=== PATIENT | female | born 1970 | race Caucasian/White ===

== ENCOUNTER 2022-09-01 11:40 | Emergency (ER) | payer MEDICAID, SELFPAY ==
[2022-09-01 11:42] VITALS: BP 99/38; PULSE 94; RESP 18; TEMP 36.6; O2SAT 99; BMI 33.0
--- NOTE | 2022-09-01 12:39 | EX.ED.DYSGE1 ---
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 Patient had this placed because of a cervical mass measuring 6.7 cm with parametrial invasion on the left causing hydronephrosis. This was placed at [facility] on 07/15/[address] Bia Olguin. Patient also sees Dr. Kingsley for chemotherapy. Patient reports that the nephrostomy tube is not draining correctly. There is a part on the side that is cracked and leaking. She was seen by [facility] today and transferred to the ER out of concern that it was either displaced or needed to be replaced recommending an nephrostogram. Patient does not experiencing any more pain than usual. She has no fevers. She is eating and drinking normally. She is making normal stool PFSH PFSH Medical History Cervical cancer Presence of urostomy Home Medications oxycodone 5 mg tablet 5 mg PO Q8H 09/01/22 [History Last Taken Unknown] Allergy/AdvReac Type Severity Reaction Status Date / Time aspirin Allergy Swelling Verified 09/01/22 11:41 ibuprofen Allergy Swelling Verified 09/01/22 11:41 Penicillins Allergy Swelling Verified 09/01/22 11:41 Surgical History Hx of removal of ovary Social History Smoking Status: Current every day smoker tobacco type: cigarettes ROS ROS ED Constitutional Constitutional ED: Denies chills or fever(s) Eyes Eyes: Denies blurry vision or change in vision ENT ENT ED: Denies rhinorrhea or sore throat Cardiovascular Cardiovascular: Denies chest pain or palpitations Respiratory/Chest Respiratory/Chest: Denies cough or dyspnea Gastrointestinal Gastrointestinal: Denies abdominal pain or constipation Genitourinary Genitourinary ED: Denies dysuria or hematuria Musculoskeletal Musculoskeletal: Denies arthralgias or back pain Integumentary Denies abscess Neurologic Neurologic: Denies headache(s) or paresthesias Psychiatric Psychiatric: Denies anxiety or depression EXAM Physical Exam Const Vital Signs: 09/01/22 11:42 Temperature 97.8 F Temperature Source Temporal Pulse Rate 94 Respiratory Rate 18 Blood Pressure 99/38 L Blood Pressure Mean 58 Pulse Ox 99 Oxygen Delivery Method Room Air Positive well nourished General Appearance ED: NAD HEENT Reports moist mucous membranes Negative for trauma or tenderness Eyes PERRL and EOMs intact bilaterally General Eye ED: Negative for pale conjunctiva or scleral icterus Chest Wall inspection of chest normal Resp normal respiratory effort Effort and Inspection: retractions Cardio regular rate and regular rhythm GI GI Narrative: Nephrostomy tube in the left flank without surrounding induration or erythema. Minimally tender to palpation. Back/Spine no CVA tenderness Neuro oriented x3 and CN's II-XII intact bilaterally Sensorium / Orientation: alert Psych mental status grossly normal MDM MDM MDM Narrative Medical decision making narrative: Patient has nephrostomy tube malfunction and appears to be a faulty part (Cap) on the outside of the nephrostomy tube. Patient states she is having trouble draining it because of leaking. The port was replaced and it is functional. She is now to able to drain her nephrostomy tube. I did speak with interventional radiology and they did not have any comfort in doing a nephrostogram her because she is on chemotherapy and this was placed by another surgeon in another facility. Since it is functional I do not believe she needs anything emergent. I recommended that she call her relay telegrapher who is caring for her and/or follow-up with the surgeon who placed it. Impression: 1. Nephrostomy tube Lab Data Attestation: I reviewed the patient's lab results. Discharge Plan Triage Chief Complaint: Complaint ED Provider: Jarod Andrea Dx/Rx/DC Orders Prescriptions: No Action oxycodone 5 mg tablet 5 mg PO Q8H Label Comments: Take 1 tablet by mouth every 8 hours as needed for pain for up to 7 days. Primary Care Provider: Care Physician,No Primary Referrals: Care Physician,No Primary [Primary Care Provider] - Activity Restrictions/Additional Instructions: You were seen today for nephrostomy tube part replacement. We were able to find the correct part and urostomy is not flushing appropriately. I did speak with interventional radiology and they did prefer that you go to the facility that placed the nephrostomy tube and they would not be able to provide any intervention today. If there are any more concerns with her nephrostomy tube I recommend calling the surgeon who placed it. Disposition Disposition: Home, Self Care
[2022-09-01 13:41] VITALS: BP 122/75; PULSE 75; RESP 16; O2SAT 98
[2022-09-01 13:50] VITALS: BP 101/39; PULSE 69; RESP 18; TEMP 36.7; O2SAT 96
== END 2022-09-01 13:52 | disposition home or self-care (01) ==
PROVIDERS: Emergency Provider Student in an Organized Health Care Education/Training Program; Visit Provider Student in an Organized Health Care Education/Training Program
DX: N99.522 Malfunction of incontinent external stoma of urinary tract (principal); N13.30 Unspecified hydronephrosis; F17.210 Nicotine dependence, cigarettes, uncomplicated; Z92.21 Personal history of antineoplastic chemotherapy; Z85.42 Personal history of malignant neoplasm of other parts of uterus
CPT/HCPCS: 99282; A4216

== ENCOUNTER 2023-03-18 23:55 | Emergency (ER) | payer MEDICAID, SELFPAY ==
[2023-03-18 23:57] VITALS: BP 128/57; PULSE 84; RESP 15; TEMP 36.9; O2SAT 100; BMI 32.3
--- NOTE | 2023-03-19 00:47 | EDS_ITS ---
HPI HPI - Female History of Present Illness Chief Complaint: Vag Bleeding Informant: patient Pain Pain: Positive for Pelvic Pain Onset: Hours (1) Bleeding Issue: Positive for Vaginal bleeding Onset: Hours (1) Context: Sudden Onset Current Severity: Spotting Maximum Severity: Heavy Vaginal Discharge Onset: Month(s) (4) Narrative Narrative: Patient presents with an hour of suprapubic cramping that is relatively mild and vaginal bleeding that was relatively heavy but is now tapered off, started spontaneously. She has a cervical cancer, she was diagnosed and treated, she had radiation she did not have to have surgery, but for the past 4 months she has been diagnosed with a uterovaginal fistula, at 1 point she had to have something lanced on the inside, in her vagina, she was on antibiotics temporarily, but for the last couple months she has been undergoing hyperbaric oxygen treatments, she has 20 more treatments left, the goal of which is to heal this fistula. She is following with Dr. Ma, gynecology oncology at [facility]. 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 She states that is no different tonight. [facility] Medical History Cervical cancer Presence of urostomy Home Medications oxycodone 5 mg tablet 5 mg PO Q8H 09/01/22 [History Last Taken Unknown] Allergy/AdvReac Type Severity Reaction Status Date / Time aspirin Allergy Swelling Verified 03/19/23 00:02 ibuprofen Allergy Swelling Verified 03/19/23 00:02 Penicillins Allergy Swelling Verified 03/19/23 00:02 ciprofloxacin [From Cipro] AdvReac PT UNSURE Verified 03/19/23 00:02 OF REACTION Surgical History Hx of removal of ovary Social History Smoking Status: Current every day smoker tobacco type: cigarettes ROS ROS ED Constitutional Constitutional ED: Denies chills or fever(s) Eyes Eyes: Denies change in vision or diplopia ENT ENT ED: Denies rhinorrhea or sore throat Cardiovascular Cardiovascular: Denies chest pain or palpitations Respiratory/Chest Respiratory/Chest: Denies cough or dyspnea Gastrointestinal Gastrointestinal: Reports abdominal pain; Denies diarrhea, nausea or vomiting Genitourinary Genitourinary ED: Reports as per HPI; Denies dysuria or hematuria Musculoskeletal Musculoskeletal: Denies back pain or neck pain Integumentary Denies abscess or rash Neurologic Neurologic: Denies headache(s), paresthesias or weakness Psychiatric Psychiatric: Denies anxiety or suicidal thoughts EXAM Physical Exam Const Vital Signs: 03/18/23 23:57 Temperature 98.4 F Temperature Source Oral Pulse Rate 84 Respiratory Rate 15 Blood Pressure 128/57 H Blood Pressure Mean 80 Pulse Ox 100 Oxygen Delivery Method Room Air Positive well nourished and well developed General Appearance ED: well developed and NAD HEENT Reports moist mucous membranes normocephalic and atraumatic Eyes PERRL and EOMs intact bilaterally Neck full ROM and supple Resp normal respiratory effort and clear to auscultation bilaterally Cardio regular rate, regular rhythm and no murmurs GI non-distended GI Narrative: Very mild suprapubic tenderness no guarding or rebound Auscultation: normoactive bowel sounds Palpation: soft Narrative: External exam is normal. Slight amount of blood present. On speculum exam, there is small amount of blood in the vaginal vault and small number of linear blood clots beyond the narrowing distal/upper vaginal canal that I cannot get to due to pain with speculum exam there, and further up more to the patient right there is what appears to be the fistula that the patient refers to, there is no active bleeding or discharge emanating from the fistula at this time. There is no pooling of blood in the vaginal canal, only a scant amount. Back/Spine no CVA tenderness General Back: other FROM Extremity normal to inspection General Extremety ED: Negative for edema, pulses abnormal or tenderness General Extremity: Negative for edema or pulses abnormal Neuro oriented x3, CN's II-XII intact bilaterally and no sensory deficits noted Sensorium / Orientation: awake and alert Motor Exam: strength 5/5 throughout Psych mental status grossly normal Skin no rashes or lesions noted and no wounds MDM MDM MDM Narrative Medical decision making narrative: Labs are unremarkable she does not have a significant leukocytosis. While waiting for these to come back I did give the patient some IV pain medication. I discussed with her gynecologic oncologist Dr. Sevilla. She knows the patient well, since it is not actively bleeding, she is comfortable with her following up as an outpatient and I will have the nurse call her to check on her condition tomorrow. She agrees that no further emergent imaging would be necessary, and the fact that there is no active bleeding from the fistula, not likely that a blood vessel has eroded into this or vice versa. We discussed reasons to return patient is comfortable with this plan has him pain medication at home. Lab Data Attestation: I reviewed the patient's lab results. Labs: Laboratory Results - last 24 hr 03/19/23 00:15 WBC 10.6 RBC 4.27 Hgb 12.4 Hct 38.2 MCV 89.5 MCH 29.0 MCHC 32.5 RDW Std Deviation 52.3 H RDW Coeff of Raulito 16.0 H Plt Count 394 MPV 8.9 Immature Gran % (Auto) 0.500 Neut % (Auto) 78.3 H Lymph % (Auto) 9.7 L Simpson % (Auto) 7.6 Eos % (Auto) 3.5 Baso % (Auto) 0.4 Absolute Neuts (auto) 8.3 H Absolute Lymphs (auto) 1.03 Nucleated RBC % 0 Sodium 140 Potassium 3.7 Chloride 107 Carbon Dioxide 29.0 Anion Gap 4 L BUN 19 H Creatinine 1.08 H Estim Creat Clear Calc 48.74 Est GFR (MDRD) Af Amer 69 Est GFR (MDRD) Non-Af 57 L BUN/Creatinine Ratio 17.6 Glucose 99 Calcium 9.4 Management Discussion w/another healthcare provider: [employer] Discharge Plan Triage Chief Complaint: Vag Bleeding ED Provider: Taye Cote Dx/Rx/DC Orders Clinical Impression: Fistula of vagina, Abnormal vaginal bleeding Instructions: ED Dysfunctional Uterine Bleeding Prescriptions: No Action oxycodone 5 mg tablet 5 mg PO Q8H Patient Comments: Take 1 tablet by mouth every 8 hours as needed for pain for up to 7 days. Primary Care Provider: MATT DIAZ Referrals: MATT DIAZ [Other] (RN will call you tomorrow to check on your condition and discuss follow up) Disposition Disposition: Home, Self Care
[2023-03-19 00:55] LABS: Absolute Lymphocyte Count 1.03 X10^3/uL (0.83-4.51); Absolute Neutrophil Count 8.3 X10^3/uL (2.0-7.7); Basophil# 0.04 X10^3/uL; Basophil% 0.4 % (0-1); Eosinophil# 0.37 X10^3/uL; Eosinophils% 3.5 % (0-5); Hematocrit 38.2 % (37-47); Hemoglobin 12.4 g/dL (12.0-15.0); Lymphocyte # 1.03 X10^3/ul (0.83-4.51); Lymphocyte % 9.7 % (19-41); Mean Corp Hgb Conc 32.5 g/dL (32-36); Mean Corpuscular Volume 89.5 fL (81-99); Mean Platelet Vol. 8.9 fl (6.2-12.0); Monocyte% 7.6 % (0-10); NRBC Flagged by Analyzer 0 % (0-5); Neutrophil # 8.29 X10^3/uL (2.7-7.7); Neutrophil % 78.3 % (47-70); Platelet Count 394 K/mm3 (150-450); RBC Distribution Width SD 52.3 fl (35.1-43.9); Red Blood Count 4.27 M/mm3 (4.2-5.4); White Blood Count 10.6 K/mm3 (4.4-11.0)
[2023-03-19] MEDS: Ondansetron 4 MG/2 ML Vial IV (00:57)
[2023-03-19] MEDS: Morphine 4 MG/ML Syringe IV (00:58)
[2023-03-19 01:08] LABS: Anion Gap 4 (5-15); BUN 19 mg/dL (7-18); BUN/Creat Ratio 17.6 RATIO (10-20); Calcium,Total 9.4 mg/dL (8.5-10.1); Chloride 107 mmol/L (98-107); Creatinine, Serum 1.08 mg/dL (0.55-1.02); EST Glomerular Filtration Rate 57 mL/min (>60); Est Glom Filt Rate - Afr Amer 69 mL/min (>60); Estimated Creatinine Clearance 48.74 ml/min; Glucose 99 mg/dL (74-106); Potassium 3.7 mmol/L (3.5-5.1); Sodium Level 140 mmol/L (136-145)
== END 2023-03-19 01:58 | disposition home or self-care (01) ==
PROVIDERS: Emergency Provider Emergency Medicine; Visit Provider Emergency Medicine
DX: N82.8 Other female genital tract fistulae (principal); N93.9 Abnormal uterine and vaginal bleeding, unspecified; K64.9 Unspecified hemorrhoids; R10.2 Pelvic and perineal pain; F17.210 Nicotine dependence, cigarettes, uncomplicated; Z85.41 Personal history of malignant neoplasm of cervix uteri; Z92.3 Personal history of irradiation; G89.29 Other chronic pain
CPT/HCPCS: 80048; 85025; 96374; 96375; 99283; A4216; J2405

== ENCOUNTER 2023-05-02 21:36 | Emergency (ER) | payer MEDICAID, SELFPAY ==
[2023-05-02 21:39] VITALS: BP 125/68; PULSE 75; RESP 16; TEMP 36.6; BMI 34.9
[2023-05-02 21:41] VITALS: BP 125/68; PULSE 75; RESP 16; TEMP 36.6
[2023-05-02 22:50] LABS: Absolute Lymphocyte Count 0.65 X10^3/uL (0.83-4.51); Basophil# 0.05 X10^3/uL; Basophil% 0.5 % (0-1); Eosinophil# 0.09 X10^3/uL; Eosinophils% 0.9 % (0-5); Hematocrit 43.7 % (37-47); Hemoglobin 14.2 g/dL (12.0-15.0); Lymphocyte # 0.65 X10^3/ul (0.83-4.51); Lymphocyte % 6.3 % (19-41); Mean Corp Hgb Conc 32.5 g/dL (32-36); Mean Corpuscular Hgb 29.3 pg (27.0-32.0); Mean Corpuscular Volume 90.1 fL (81-99); Mean Platelet Vol. 8.9 fl (6.2-12.0); Monocyte# 0.54 X10^3/uL; Monocyte% 5.2 % (0-10); NRBC Flagged by Analyzer 0 % (0-5); Neutrophil # 9.01 X10^3/uL (2.7-7.7); Neutrophil % 86.5 % (47-70); Platelet Count 349 K/mm3 (150-450); RBC Distribution Width CV 15.2 % (11.6-14.6); RBC Distribution Width SD 50.7 fl (35.1-43.9); Red Blood Count 4.85 M/mm3 (4.2-5.4); White Blood Count 10.4 K/mm3 (4.4-11.0)
[2023-05-02] MEDS: Morphine 4 MG/ML Syringe IV (22:50)
[2023-05-02] MEDS: 0.9% Normal Saline (1000mL) 1,000 ML 999 ML IV (22:50)
[2023-05-02] MEDS: Ondansetron 4 MG/2 ML Vial IV (22:50)
--- NOTE | 2023-05-02 23:04 | CT_ITS ---
EXAM: CT ABDOMEN AND PELVIS WITHOUT INTRAVENOUS CONTRAST CLINICAL INDICATION: right flank pain TECHNIQUE: Helically acquired images were obtained of the abdomen and pelvis without intravenous contrast. This CT exam was performed using one or more of the following dose reduction techniques: automated exposure control, adjustment of the mA and/or kV according to patient size, and/or use of iterative reconstruction technique. RADIATION DOSE: CTDIvol = 15.98 mGy, DLP = 826.30 mGy-cm COMPARISON: No relevant prior studies available. FINDINGS: LOWER THORAX: Unremarkable. Lung bases are clear. No cardiomegaly. No significant pericardial effusion. ABDOMEN: LIVER: Unremarkable. Homogeneous. GALLBLADDER AND BILE DUCTS: Multiple stones in the gallbladder. No gallbladder distention or wall edema. No intra- or extrahepatic biliary ductal dilation. PANCREAS: Unremarkable. No focal cystic mass. SPLEEN: Unremarkable. Normal size without focal cystic or solid mass. ADRENALS: Unremarkable. No nodules. KIDNEYS AND URETERS: Mild left hydroureter and hydronephrosis. The distal left ureter extends directly adjacent to the distal end of the vagina, which has a prominent amount of fluid. Normal renal size and position. STOMACH AND BOWEL: Unremarkable. No stomach or bowel distention. No focal inflammatory change. PELVIS: APPENDIX: The appendix is normal. BLADDER: Unremarkable. REPRODUCTIVE: Unremarkable as visualized. No mass. ABDOMEN and PELVIS: INTRAPERITONEAL SPACE: Unremarkable. No ascites or other fluid collection. No free air. BONES/JOINTS: Degenerative changes of the spine. No suspicious lytic or blastic abnormality. SOFT TISSUES: Unremarkable. No discrete abdominal or pelvic wall hernia. VASCULATURE: Unremarkable. Abdominal aorta is non-dilated. LYMPH NODES: Unremarkable. No enlarged lymph nodes. CT/Abdomen/Pelvis without Cont IMPRESSION: 1. Mild left hydroureter and hydronephrosis. The distal left ureter extends directly adjacent to the distal end of the vagina, which has a prominent amount of fluid. This could indicate a ureterovaginal fistula or a distal ureteral stricture in a patient with a history of previous pelvic radiation therapy. 2. Multiple stones in the gallbladder. Electronically Signed: Trev Monte MD at 23:26 EDT ,
[2023-05-02 23:11] LABS: Anion Gap 5 (5-15); BUN 19 mg/dL (7-18); BUN/Creat Ratio 17.8 RATIO (10-20); Calcium,Total 9.7 mg/dL (8.5-10.1); Chloride 104 mmol/L (98-107); Creatinine, Serum 1.07 mg/dL (0.55-1.02); EST Glomerular Filtration Rate 57 mL/min (>60); Est Glom Filt Rate - Afr Amer 69 mL/min (>60); Glucose 115 mg/dL (74-106); Potassium 4.3 mmol/L (3.5-5.1); Sodium Level 137 mmol/L (136-145)
[2023-05-02 23:25] LABS: Mucous, Urine 0 SEEN /hpf (<or=2+); Squamous Epithelial Cells - UA 0 SEEN /hpf (5-10); White Blood Cells 0 SEEN /hpf (0-5)
[2023-05-02 23:52] LABS: Color, Urine Yellow (Yellow); Glucose, Dipstick Normal (Normal); Ketone-Dipstick Negative (Negative); Leukocyte Esterase-Dipstick 25 /ul (Negative); Nitrite-Dipstick Negative (Negative); Occult Blood-Urine 10 /ul (Negative); Protein-Dipstick 15 mg/dl (Negative); Urine Bilirubin Dipstick Negative (Negative); Urine Clarity Clear (Clear); Urine Urobilinogen Normal (Normal)
[2023-05-03 00:17] LABS: Bacteria RARE /hpf (None Seen); Red Blood Cells-Urine 0-5 SEEN /hpf (0-5)
--- NOTE | 2023-05-03 00:59 | EDS_ITS ---
HPI History of Present Illness Chief Complaint: Abd Pain Informant: patient Narrative Narrative: Patient is a 52-year-old female with known renal cancer with metastasized to the pelvis. She states that she had a MRI of her abdomen roughly 2 weeks ago which showed gallstones but that this was an incidental finding as the MRI was truly for her renal cancer with pelvic metastases. She states that today she noticed a sharp pain in the right lower quadrant that came along the lateral aspect of the abdomen and wrapped around to her back. She states that the pain does not improve or lessen with any type of motion or position change. She states that there is been no dysuria and she denies any fevers or chills because of her significant past medical history recent discovery of gallstones and now this increased pain she was concerned and therefore comes in for evaluation [facility] Medical History Cervical cancer Presence of urostomy Home Medications oxycodone 5 mg tablet 5 mg PO Q8H 09/01/22 [History Last Taken Unknown] ondansetron 4 mg disintegrating tablet 4 mg PO TID PRN nausea and vomiting #21 tabs 05/03/23 [Rx Last Taken Unknown] oxycodone-acetaminophen 5 mg-325 mg tablet (Percocet) 1 tab PO Q6H PRN pain 3 days #12 tabs 05/03/23 [Rx Last Taken Unknown] Allergy/AdvReac Type Severity Reaction Status Date / Time aspirin Allergy Swelling Verified 05/02/23 21:38 ibuprofen Allergy Swelling Verified 05/02/23 21:38 Penicillins Allergy Swelling Verified 05/02/23 21:38 ciprofloxacin [From Cipro] AdvReac PT UNSURE Verified 05/02/23 21:38 OF REACTION Surgical History Hx of removal of ovary Social History Smoking Status: Current every day smoker tobacco type: cigarettes ROS ROS ED Constitutional Constitutional ED: Denies chills or fever(s) ENT ENT ED: Denies sore throat Cardiovascular Cardiovascular: Denies chest pain Respiratory/Chest Respiratory/Chest: Denies cough or dyspnea Gastrointestinal Gastrointestinal: Reports abdominal pain and nausea; Denies diarrhea or vomiting Genitourinary Genitourinary ED: Denies dysuria or urinary frequency Musculoskeletal Musculoskeletal: Reports back pain; Denies myalgias Integumentary Denies rash Neurologic Neurologic: Denies headache(s) Hematologic/Lymphatic Hematologic/Lymphatic: Denies easy bleeding or easy bruising EXAM Physical Exam Const Vital Signs: 05/03/23 01:20 Pulse Rate 85 Pulse Ox 96 Positive well nourished and well developed General Appearance ED: well developed HEENT Reports moist mucous membranes Eyes PERRL and EOMs intact bilaterally General Eye ED: Negative for scleral icterus Neck supple Resp normal respiratory effort and clear to auscultation bilaterally Cardio regular rate and regular rhythm Rate: other Other Details: Radial and carotid pulses are equal and symmetric GI non-distended GI Narrative: Abdomen is soft and nondistended with hypoactive bowel sounds. There is pain on palpation in the right lower mid and upper abdomen. No voluntary guarding or rigidity. No pulsatile mass or fluid wave. Negative Hawkins sign Auscultation: hypoactive bowel sounds Palpation: soft Back/Spine Back/Spine Narrative: Positive right CVA pain noted Extremity normal to inspection Neuro oriented x3 and CN's II-XII intact bilaterally Sensorium / Orientation: alert Psych mental status grossly normal Skin no rashes or lesions noted MDM MDM MDM Narrative Medical decision making narrative: Patient presented to the ER with stable vitals but reported onset of sharp right-sided abdominal pain wrapping around to her back that did not improve or worsen with position change. Differential diagnosis is for kidney stone/ureterolithiasis versus the area colic versus pancreatitis versus metastatic lesions versus potential obstruction versus pyelonephritis. As the patient's exam is more consistent with kidney stones and it is biliary colic I did elect to perform basic laboratory studies with a noncontrast CT scan looking for potential stone. Labs showed stable kidney function no electrolyte derangement and stable H&H. Urine sample displayed blood which can be consistent with kidney stone but no secondary changes to suggest infection going against pyelonephritis. The patient CT scan revealed multiple gallstones without signs of acute cholecystitis and it showed the mass within her left kidney causing compression of the left ureter but patient states this is chronic in nature. There is no obvious kidney stone noted. At this time vitals are stable laboratory values do not show signs of acute infection or acute kidney injury her exam and CT scan do not suggest acute cholecystitis. Therefore with improvement of pain and negative work-up she will be given symptomatic care and discharged home. History & Record Review Discussion w/independent historian: Patient and Family Lab Data Attestation: I reviewed the patient's lab results. Labs: Laboratory Results - last 24 hr 05/02/23 05/02/23 12:15 23:15 WBC 10.4 RBC 4.85 Hgb 14.2 Hct 43.7 MCV 90.1 MCH 29.3 MCHC 32.5 RDW Std Deviation 50.7 H RDW Coeff of [place] 15.2 H Plt Count 349 MPV 8.9 Immature Gran % (Auto) 0.600 Neut % (Auto) 86.5 H Lymph % (Auto) 6.3 L [place] % (Auto) 5.2 Eos % (Auto) 0.9 Baso % (Auto) 0.5 Absolute Neuts (auto) 9.0 H Absolute Lymphs (auto) 0.65 L Nucleated RBC % 0 Sodium 137 Potassium 4.3 Chloride 104 Carbon Dioxide 28.0 Anion Gap 5 BUN 19 H Creatinine 1.07 H Estim Creat Clear Calc 49.20 Est GFR (MDRD) Af Amer 69 Est GFR (MDRD) Non-Af 57 L BUN/Creatinine Ratio 17.8 Glucose 115 H Calcium 9.7 Urine Color Yellow Urine Clarity Clear Urine pH 6.0 Ur Specific [place] 1.020 Urine Protein 15 H Urine Glucose (UA) Normal Urine Ketones Negative Urine Occult Blood 10 H Urine Nitrite Negative Urine Bilirubin Negative Urine Urobilinogen Normal Ur Leukocyte Esterase 25 H Urine RBC 0-5 SEEN Urine WBC 0 SEEN Ur Squamous Epith Cells 0 SEEN Urine Bacteria RARE Urine Mucus 0 SEEN Radiography Diagnostic Testing: Clinical Impression(s) from Imaging Studies Abdomen/Pelvis CT 05/02/23 23:04 IMPRESSION: 1. Mild left hydroureter and hydronephrosis. The distal left ureter extends directly adjacent to the distal end of the vagina, which has a prominent amount of fluid. This could indicate a ureterovaginal fistula or a distal ureteral stricture in a patient with a history of previous pelvic radiation therapy. 2. Multiple stones in the gallbladder. Electronically Signed: Trev Monte MD at 23:26 EDT , Discharge Plan Triage Chief Complaint: Abd Pain ED Provider: Jasbir Munguia Dx/Rx/DC Orders Clinical Impression: Right flank pain, Cholelithiasis, Metastatic cancer Instructions: Gallstones Dc, ED Kidney Stone w/ Colic Prescriptions: New oxycodone-acetaminophen [Percocet] 5-325 mg tablet 1 tab PO Q6H PRN (Reason: pain) 3 Days Qty: 12 0RF ondansetron 4 mg tablet,disintegrating 4 mg PO TID PRN (Reason: nausea and vomiting) Qty: 21 0RF No Action oxycodone 5 mg tablet 5 mg PO Q8H Patient Comments: Take 1 tablet by mouth every 8 hours as needed for pain for up to 7 days. Primary Care Provider: Care Physician,No Primary Referrals: Care Physician,No Primary [Primary Care Provider] - Activity Restrictions/Additional Instructions: Take your medication as directed to help control your symptoms but if you develop a fever over 100.4 intractable pain or intractable nausea/vomiting please return to the ER for repeat evaluation Disposition Disposition: Home, Self Care Discharge Date/Time: 05/03/23 01:21
[2023-05-03 01:20] VITALS: PULSE 85; O2SAT 96
== END 2023-05-03 01:21 | disposition home or self-care (01) ==
PROVIDERS: Emergency Provider Emergency Medicine; Visit Provider Emergency Medicine
DX: R10.31 Right lower quadrant pain (principal); C79.89 Secondary malignant neoplasm of other specified sites; C64.9 Malignant neoplasm of unspecified kidney, except renal pelvis; K80.20 Calculus of gallbladder without cholecystitis without obstruction; F17.210 Nicotine dependence, cigarettes, uncomplicated
CPT/HCPCS: 74176; 80048; 81001; 85025; 96361; 96374; 96375; 99283; A4216; J2405

== ENCOUNTER 2023-08-27 10:00 | Outpatient (RCR) | payer MEDICAID, SELFPAY ==
--- NOTE | 2023-04-27 15:56 | HP.PTEVAL ---
Patient's Visit Information Visit Information Visit Information: MAXIMILIANO WYMAN is a 52 year old F referred to Physical Therapy by MATT WHITE with a diagnosis of weakness. Date of Evaluation: 04/27/23 Physical Therapist: HANNAH Pickering Visit Plan Frequency: 3x /Week Duration: 3 Months Plan: Test Tinetti, CATSIB and stairs next visit (pt was too tired after eval) 3X/ week for 3 months for LE strength, gait training, functional strength, balance, general mobility with HEP Subjective Subjective: Cervical CA in May and she did all of her treatments in [facility] and she was good. The last week of Sep until November 22 she was doing good and back to normal. She went on vacation and was coming back and life hit her. She has a fistula and she started with a pain like she was having a baby 24-7 in her butt and no once could figure out what it was. She could not move or she was in pain. The fistula is shrinking. She still has pain but not a whole lot. Her legs get really tired really fast. She is not strong in her arms. Her kidney is having trouble. She really wants to walk. She does not want a walker. She wants to move now that she does not hurt so much. She is walking pushing with a wheelchair. She wants to move but afraid that she will do too much and then start to hurt. She is in tears and she is an emotional mess. She is off the pain meds and takes Tylenol as needed. She started shaking about 2-3 weeks ago (she had some before but not like this). According to her kids the shaking is getting worse. She sees the Dr on . She walked from [employer] to the [employer]. She has leg feeling of rubbery and sometimes they are like lead. She feels safer with tennis shoes. Stairs: one step at a time with one hand rail and holds onto the side of the house and they are hard. She snuck out today and drove here. Driving was not an issue. She has no shakiness with sitting. She does have some back pain. No N&T. No pain in the legs. Her feet do not fall asleep. She is not sleeping at night. Her sleep schedules are off. Pt is very angry. Pt does struggle sometimes getting out of a deep chair and she needs to use her arms to get up. Pt is having some vision issues...things are blurry when she is looking up close...she does wear cheaters but vision has gotten worse over the last 2 weeks. She feels it is related to the Gabapetin. Pain Pelvic pain: Pain Intensity (Out of 10): 3 Objective Objective: Gait: walks pushing a wheelchair with scissoring of gait with one foot in front of the other. Pt is able to walk without scissoring with concentration but with distraction, such as walking and talking, she goes right back to scissoring. While pt is walking she gets shaking and ataxia. She does not like to move her head with gait and has a hard time looking down at her feet with gait. Pt uses a wheelchair to walk. She does not use it in the house but does furniture walk Standing heel and toe raises X [address] with heavy UE support Patella DTR's 2+/3 LE MMT: R hip flex 12.7 and L 10.4 R knee ext 15.3 and L 8.8 R knee flex 5.7 and L 7 Supine hooKlying flexion R 5.3 and L 5.5 Bridges: 1/4 normal ROM Sit to stand: able to get up but needs UE to push self up. LTR: increase stretch to B sides SLR: Has a hard time lifting her leg.... feels that her brain can not communicate with her leg in what to do Sitting LAQ with EC: feels that she is in full LAQ when she does not have full ROM with EC Heel to orta test...able to get to her orta with the opposite heel but is slow and not good proprioception to get there. Balance/Special Test Scores Lower Extremity Functional Score: 17 Goals Goal 1:: I HEP Goal Time Frame: 8-12 Weeks Goal 2:: Increase LE strength (at time of the eval: LE MMT: R hip flex 12.7 and L 10.4 R knee ext 15.3 and L 8.8 R knee flex 5.7 and L 7 Supine hooKlying flexion R 5.3 and L 5.5) Goal Time Frame: 8-12 Weeks Goal 3:: Be able to walk back to the treatment area with least restrictive device without scissoring, less ataxia, more overall control and more endurance Goal Time Frame: 8-12 Weeks Rehabilitation Potential Rehabilitation Potential: Good Anticipated Interventions Text: Thank you for the opportunity to evaluate your patient. For Medicare and Medicare HMO plans, please review the plan of care and approve it. It will need to be FAXED BACK to us at [phone] for Medicare purposes. For Medicare only, by signing this I certify the plan of care. Please let me know if there are questions or concerns regarding this plan of care. Physician Signature: Date:
--- NOTE | 2023-06-01 09:35 | HP.PTDCSUM ---
Discharge Summary D/C summary: It has been my pleasure to treat MAXIMILIANO Rios GARO referred by MATT WHITE, with the diagnosis of weakness for a total of 11 visit(s). Discharge Date: Please see the following information for a summary of their discharge status. Subjective Subjective: Pt reports that she does well in the beginning of PT and then she tuckers out. She wants a neurology appt Pain Pelvic pain: Pain Intensity (Out of 10): 0 Belly pain: Pain Intensity (Out of 10): 0 Overall Improvement % Improvement: 30 Objective Objective/Function: Pt legs started shaking pretty quickly into treatment Goals Goal 1:: I HEP Goal 2:: Increase LE strength (at time of the eval: LE MMT: R hip flex 12.7 and L 10.4 R knee ext 15.3 and L 8.8 R knee flex 5.7 and L 7 Supine hooKlying flexion R 5.3 and L 5.5) Goal 3:: Be able to walk back to the treatment area with least restrictive device without scissoring, less ataxia, more overall control and more endurance Plan Plan: Resume Blaze pods... pt was too shaky today D/C Information d/c sentence: If there are questions or concerns regarding this patient's physical therapy, please feel free to call me at [phone]. Thank you for the referral of this patient. Sincerely, Julianna Madison, MPT Balance/Gait/Functional tests Balance/Special Test Scores Lower Extremity Functional Score: 17 TUG Test Time Seconds: 7.3 Tug Test: <10 sec.=free mobile 30 Second Chair Rise Test Seconds: 14 Improvement % Improvement: 30
--- NOTE | 2023-06-01 14:47 | HP.PTREVAL ---
Re-Evaluation Intro: MATT WHITE, It has been my pleasure to treat MAXIMILIANO WYMAN over the last 11 visits for weakness. Please see the progress note below for an update on the physical therapy plan of care! Subjective Subjective: Pt reports that she does well in the beginning of PT and then she tuckers out. She wants a neurology appt Objective Objective/Function: Pt legs started shaking pretty quickly into treatment Plan Plan Plan: Resume Blaze pods... pt was too shaky today Balance/Gait/Functional tests Balance/Special Test Scores Lower Extremity Functional Score: 17 TUG Test Time Seconds: 7.3 Tug Test: <10 sec.=free mobile 30 Second Chair Rise Test Seconds: 14 Goals Goals Goal 1:: I HEP Goal Time Frame: 8-12 Weeks Goal 2:: Increase LE strength (at time of the eval: LE MMT: R hip flex 12.7 and L 10.4 R knee ext 15.3 and L 8.8 R knee flex 5.7 and L 7 Supine hooKlying flexion R 5.3 and L 5.5) Goal Time Frame: 8-12 Weeks Goal 3:: Be able to walk back to the treatment area with least restrictive device without scissoring, less ataxia, more overall control and more endurance Goal Time Frame: 8-12 Weeks Anticipated Interventions Re-Evaluation Ending Re-evaluation ending: Please do not hesitate to contact me at [phone] by phone or if you have questions or concerns regarding this new plan of care! Sincerely, Julianna Madison, MPT
--- NOTE | 2023-06-29 09:40 | HP.PTREVAL ---
Re-Evaluation Intro: MATT SHAHLA WHITE, It has been my pleasure to treat MAXIMILIANO WYMAN over the last 19 visits for weakness. Please see the progress note below for an update on the physical therapy plan of care! Subjective Subjective: Pt started bladder therapy and she sees the neurologist next . Pt is very emotional about why this is all happeneing and afraid of what the neurologist will say. She is angry that she is the way she is right now. She broke her toe but just taped it together and was able to get her shoe on. Objective Objective/Function: Gait has improved but overall strength has not R hip flex 8.4 and L 9 R knee ext 9.5 and L 11 R knee flex 7.4 and L 8 Supine hooKlying flexion R 5.3 and L 5.5) Plan Plan Plan: Continue to progress balance, strength as tolerated Gait is not good with other distractions Balance/Gait/Functional tests Balance/Special Test Scores Lower Extremity Functional Score: 30 TUG Test Time Seconds: 7.3 Tug Test: <10 sec.=free mobile 30 Second Chair Rise Test Seconds: 18 Goals Goals Goal 1:: I HEP Goal Time Frame: 8-12 Weeks Goal 2:: Increase LE strength (at time of the eval: LE MMT: R hip flex 12.7 and L 10.4 R knee ext 15.3 and L 8.8 R knee flex 5.7 and L 7 Supine hooKlying flexion R 5.3 and L 5.5) Goal Time Frame: 8-12 Weeks Goal 3:: Be able to walk back to the treatment area with least restrictive device without scissoring, less ataxia, more overall control and more endurance Goal Time Frame: 8-12 Weeks Goal Progress: Progressing Anticipated Interventions Re-Evaluation Ending Re-evaluation ending: Please do not hesitate to contact me at [phone] by phone or if you have questions or concerns regarding this new plan of care! Sincerely, Julianna Madison, MPT
--- NOTE | 2023-07-20 09:32 | HP.PTREVAL ---
Re-Evaluation Intro: MATT GALE CINDY, It has been my pleasure to treat MAXIMILIANO WYMAN over the last 28 visits for weakness. Please see the progress note below for an update on the physical therapy plan of care! Subjective Subjective: Pt wants to work on strength and how to keep her from getting worse with the shakes when she does anything. Her MRI is on the . She feels that she is making strides in PT but she is not where she is at. She is able to do more because of PT but not where she wants to be. Objective Objective/Function: TU:78 2 min walk test: 226 feet with CGA to min A LE MMT: (measurements taken on 07-13) R hip flex 8.2 and L 5.3 R knee ext 9.7 and L 8.7 R knee flex 7.5 and L 8.2 FGA: 10 After doing above pt had more shaking and head felt more swimming Plan Plan Plan: Submit for additional insurance visits. 2X/ week for 15 more visits Continue to progress balance, strength as tolerated Gait is not good with other distractions Balance/Gait/Functional tests Balance/Special Test Scores Functional Gait Assessment Score: 10 % Disability: 66.6700 Lower Extremity Functional Score: 30 TUG Test Time Seconds: 7.3 Tug Test: <10 sec.=free mobile 30 Second Chair Rise Test Seconds: 18 Goals Goals Goal 1:: I HEP Goal Time Frame: 8-12 Weeks Goal 2:: Increase LE strength (at time of the eval: LE MMT: R hip flex 12.7 and L 10.4 R knee ext 15.3 and L 8.8 R knee flex 5.7 and L 7 Supine hooKlying flexion R 5.3 and L 5.5) Goal Time Frame: 8-12 Weeks Goal 3:: Be able to walk back to the treatment area with least restrictive device without scissoring, less ataxia, more overall control and more endurance Goal Time Frame: 8-12 Weeks Goal Progress: Progressing Goal 4:: Increase balance (score on FGA 10) Goal Time Frame: 8-12 Weeks Goal 5:: Increase TUG time (16:78 seconds) Goal Time Frame: 8-12 Weeks Anticipated Interventions Re-Evaluation Ending Re-evaluation ending: Please do not hesitate to contact me at [phone] by phone or if you have questions or concerns regarding this new plan of care! Sincerely, Julianna Madison, MPT
--- NOTE | 2023-08-27 13:51 | HP.PTREVAL ---
Re-Evaluation Intro: MATT SHAHLA WHITE, It has been my pleasure to treat MAXIMILIANO WYMAN over the last 37 visits for weakness. Please see the progress note below for an update on the physical therapy plan of care! Subjective Subjective: Pt is bouncy today. She felt pushed last time and wanted it but it took until today for her to get better. She has to focus to get through therapy. She is so tired after going to the grocery store and walking and thinking about what she is buying. She has to move but can not push it too far. Lunging and rotating at same time is difficult. She struggles to find out where her feet are when she is doing hurdles etc. Objective Objective/Function: MMT: R hip flex 14.6 and L 14.6 R knee ext 15.6 and L 17.4 R knee flex 12.9 and L 9.5 TUG time (10.39 seconds) Plan Plan Plan: Continue to progress strength and balance, strength as tolerated Balance/Gait/Functional tests Balance/Special Test Scores Functional Gait Assessment Score: 10 % Disability: 66.6700 Lower Extremity Functional Score: 30 TUG Test Time Seconds: 7.3 Tug Test: <10 sec.=free mobile 30 Second Chair Rise Test Seconds: 18 Goals Goals Goal 1:: I HEP Goal Time Frame: 8-12 Weeks Goal 2:: Increase LE strength (at time of the eval: LE MMT: R hip flex 12.7 and L 10.4 R knee ext 15.3 and L 8.8 R knee flex 5.7 and L 7 Supine hooKlying flexion R 5.3 and L 5.5) Goal Time Frame: 8-12 Weeks Goal 3:: Be able to walk back to the treatment area with least restrictive device without scissoring, less ataxia, more overall control and more endurance Goal Time Frame: 8-12 Weeks Goal Progress: Progressing Goal 4:: Increase balance (score on FGA 10) Goal Time Frame: 8-12 Weeks Goal 5:: Increase TUG time (16:78 seconds) Goal Time Frame: 8-12 Weeks Anticipated Interventions Re-Evaluation Ending Re-evaluation ending: Please do not hesitate to contact me at [phone] by phone or if you have questions or concerns regarding this new plan of care! Sincerely, Julianna Madison, MPT
== END 2023-08-27 19:00 | disposition home or self-care (01) ==
LOC: PT 10:00
DX: R53.1 Weakness (principal)
CPT/HCPCS: 97110; 97162; 97530